=== PATIENT | female | born 1965 | race Caucasian/White ===

== ENCOUNTER 2016-04-22 01:35 | Emergency (ER) | payer BC ==
[~2016-04-22 01:35] MED LIST: ALBUTEROL17 GM INH; ALEVE220 M1 PO; DULERA 100 MCG/13 GM; SPIRONOLACTONE100 MG PO; ZYRTEC10 M1 PO
== END 2016-04-22 02:45 | disposition home or self-care (01) ==
LOC: CED 01:35
DX: S61.214A Laceration without foreign body of right ring finger without damage to nail, initial encounter (principal); J45.909 Unspecified asthma, uncomplicated; W26.0XXA Contact with knife, initial encounter; Y92.009 Unspecified place in unspecified non-institutional (private) residence as the place of occurrence of the external cause
CPT/HCPCS: 12001; 99283